=== PATIENT | male | born 1975 ===

== ENCOUNTER 2020-06-09 11:19 | Outpatient (CLI) | payer OTHER | END 2020-06-09 15:48 | disposition home or self-care (01) | LOC: OFIC 805 11:19 | PROVIDERS: ATTEND Otolaryngology | DX: H60.8X1 Other otitis externa, right ear (principal); H90.41 Sensorineural hearing loss, unilateral, right ear, with unrestricted hearing on the contralateral side; H61.23 Impacted cerumen, bilateral ==

== ENCOUNTER 2020-07-06 10:24 | Outpatient (CLI) | payer OTHER | END 2020-07-06 11:30 | disposition home or self-care (01) | LOC: OFIC 805 10:24 | PROVIDERS: ATTEND Otolaryngology | DX: H60.8X1 Other otitis externa, right ear (principal); H61.23 Impacted cerumen, bilateral; H90.41 Sensorineural hearing loss, unilateral, right ear, with unrestricted hearing on the contralateral side ==